=== PATIENT | female | born 2005 | race Hispanic/Latino ===

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

== ENCOUNTER 2025-05-22 07:09 | Emergency (ER) | payer SELFPAY ==
[~2025-05-22] VITALS: Ht 157.5 cm; Wt 93.5 kg
[~2025-05-22 07:09] MED LIST changes: +LACT10PA5 PO; +ONDA-243 PO; -ONDA4TAB10 PO
--- NOTE | 2025-05-22 07:22 | ERN ---
General Chief Complaint: Abdominal Pain Stated Complaint: ABDOMINAL PAIN Time Seen by MD: 07:10 Source: patient History of Present Illness Initial Comments Patient is a 19-year-old female coming in complaining of abdominal pain. Patient states the abdominal pain began a couple of days ago and has been progressively getting worse. Patient was seen at another hospital but states that she does not know what they told her. She also states that the pain is in the epigastric and bilateral upper flank regions. Allergies: Coded Allergies: No Allergy Information Available (Verified Allergy, Unknown, 05/08/21) No Known Drug Allergies (Unverified Allergy, Unknown, 05/12/22) Home Meds Active Scripts Lactulose (Lactulose) 10 Gm Packet, 10 GM PO DAILY, #30 PKT Prov:BRANDIE KINNEY 05/12/22 Cetirizine HCl (Cetirizine HCl) 10 Mg Tablet, 10 MG PO DAILY, #15 TAB Prov:[facility] 05/03/22 Benzonatate (Tessalon Perles) 100 Mg Cap, 100 MG PO TID, #15 CAP Prov:[facility] 05/03/22 Ibuprofen (Ibuprofen) 600 Mg Tablet, 600 MG PO Q6H PRN for PAIN, #15 TAB Prov:MINOO ALATORRE [facility] 05/03/22 Ondansetron (Ondansetron Odt) 4 Mg Tab.rapdis, 4 MG PO TID, #21 TAB Prov:BRANDIE KINNEY 04/28/22 Cephalexin Monohydrate (Keflex) 500 Mg Cap, 500 MG PO TID for 7 Days, #21 CAP Prov:BRANDIE KINNEY 04/28/22 Ondansetron (Ondansetron Odt) 4 Mg Tab.rapdis, 4 MG PO BID, #28 TAB Prov:BRANDIE KINNEY 05/08/21 Famotidine (Pepcid) 20 Mg Tablet, 20 MG PO BID, #60 TAB Prov:BRANDIE KINNEY 05/08/21 Dicyclomine HCl (Bentyl) 20 Mg Tab, 20 MG PO QID, #28 TAB Prov:BRANDIE KINNEY 05/08/21 Past Medical History Past Medical History: No Pertinent History Medical History Other: Gastritis, obesity Past Surgical History: None Family History Family History: Negative Social History Social History: Negative Female( History) : 0 ROS Dictation CONSTITUTIONAL: No chills, no fever, no weakness, no diaphoresis, no malaise. HEAD/FACE: No signs of trauma. EENT: No eye pain, no blurred vision, no tearing, no double vision, no ear pain, no ear discharge, no nose pain, no nasal congestion, no throat pain, no throat swelling, no mouth pain. RESPIRATORY: No cough, no orthopnea, no SOB, no stridor, no wheezing. CARDIOVASCULAR: No chest pain, no edema, no palpitations, no syncope. GASTROINTESTINAL/ABDOMINAL: abdominal pain, no constipation, no diarrhea, no nausea, no vomiting. GENITOURINARY: No abnormal discharge, no dysuria, no frequent urination, no hematuria. No complaints of pain in the genitals. MUSCULOSKELETAL: No back pain, no gout, no joint pain, no joint swelling, no muscle pain, no muscle stiffness, no neck pain. INTEGUMENTARY: No change in color, no change in hair/nails, no dryness, no lesion, no lumps, no rash. NEUROLOGICAL/PSYCH: No anxiety, not depressed, no emotional problem, no headache, no numbness, no pre-existing deficit, no history of seizures, no tremors, no weakness. HEMATOLOGIC/LYMPHATIC: Not anemic, no history of blood clots, no apparent bleeding, no bruising, glands not swollen. All Systems Negative, Except as Noted. Physical Exam Physical Exam Dictation VITAL SIGNS: Reviewed. GENERAL APPEARANCE: Alert, oriented x3, no acute distress, obese. HEAD AND FACE: Non-traumatic. EYES: PERRL, pink conjunctivas, eyelid no trauma, anterior chamber clear. EARS: Pinnas intact and no signs of trauma or erythema. Ear canals clear and no discharge. TMs no erythema. NOSE: No discharge, no bleeding. OROPHARYNX: Mouth normal, teeth no caries, tongue pink. Pharynx clear, no erythema. Tonsils no exudates, no abscesses noted. Mucous membrane moist. NECK: Supple, non-tender, no thyromegaly, no masses, no JVD, no bruits. BREAST: Deferred. CHEST: No tenderness, no crepitus, no paradoxical movement, no retractions. LUNGS: Clear, well-ventilated, symmetric, no rales, no wheezing, no rhonchi, no stridor, good breath sounds bilaterally. HEART: Regular rate, regular rhythm, no murmur, no gallops. VASCULAR: No peripheral edema. ABDOMEN: Soft, positive bowel sounds, nondistended, no guarding, nontender, no rebound, no masses no hepatomegaly, no splenomegaly, no Birch's sign, no hernias. RECTAL: Deferred. GENITAL: Deferred. NEUROLOGICAL: Normal speech, gross motor function intact, gross sensory function intact. MUSCULOSKELETAL: Neck nontender, full range of motion, back nontender, full range of motion. EXTREMITIES: Nontender, full range of motion. SKIN: Color pink, dry, no turgor, no rash, no lacerations, no abrasions, no contusions. LYMPHATICS: Deferred. Results Laboratory and Microbiology Lab and Micro Result Laboratory Tests Test 05/22/25 07:27 05/22/25 07:34 Urine Color YELLOW (YELLOW) Urine Appearance CLOUDY (CLEAR) H Urine pH 6.0 (5.0-8.0) Urine Specific [place] 1.039 (1.001-1.031) Urine Protein 50 mg/dL (NEGATIVE) H Urine Glucose (UA) NEGATIVE mg/dL (NEGATIVE) Urine Ketones 10 mg/dL (NEGATIVE) H Urine Occult Blood NEGATIVE (NEGATIVE) Urine Nitrate NEGATIVE (NEGATIVE) Urine Bilirubin 0.5 mg/dL (NEGATIVE) H Urine Urobilinogen 2.0 mg/dL (0.2-1.0) H Urine Leukocyte Esterase 25 Tre/uL (NEGATIVE) H Urine RBC 2-5 /HPF (0-1) H Urine WBC 2-5 /HPF (0-1) H Urine Squamous Epithelial Cells FEW /HPF (0-2) Urine Amorphous Crystals (Auto) RARE /LPF (None Seen) Urine Bacteria None /HPF (None Seen) Urine HCG, Qualitative NEGATIVE (NEGATIVE) Urine Opiates Screen NEGATIVE (NEGATIVE) Urine Barbiturates Screen NEGATIVE (NEGATIVE) Urine Phencyclidine Screen NEGATIVE (NEGATIVE) Urine Amphetamines Screen NEGATIVE (NEGATIVE) Urine Benzodiazepines Screen NEGATIVE (NEGATIVE) Urine Cocaine Screen NEGATIVE (NEGATIVE) Urine Marijuana (THC) Screen POSITIVE (NEGATIVE) H White Blood Count 9.2 K/uL (4.8-10.8) Red Blood Count 4.73 MIL/uL (4.00-5.50) Hemoglobin 12.1 g/dL (12.0-16.0) Hematocrit 37.4 % (36-48) Mean Corpuscular Volume 79.1 fL (80-100) L Mean Corpuscular Hemoglobin 25.6 pg (27.0-33.0) L Mean Corpuscular Hemoglobin Concent 32.4 g/dL (32.0-36.0) Red Cell Distribution Width 15.1 % (11.0-15.5) Platelet Count 395 K/uL (130-400) Mean Platelet Volume 9.1 fL (7.5-10.5) Immature Granulocyte % (Auto) 0.3 % (0-1) Neutrophils (%) (Auto) 70.8 % (40.0-77.0) Lymphocytes (%) (Auto) 18.4 % (21.0-51.0) L Monocytes (%) (Auto) 10.0 % (3.0-13.0) Eosinophils (%) (Auto) 0.1 % (0.0-8.0) Basophils (%) (Auto) 0.4 % (0.0-5.0) Neutrophils # (Auto) 6.5 K/uL (1.8-7.7) Lymphocytes # (Auto) 1.7 K/uL (1.0-4.8) Monocytes # (Auto) 0.9 K/uL (0.1-1.0) Eosinophils # (Auto) 0.01 K/uL (0.00-0.70) Basophils # (Auto) 0.04 K/uL (0.00-0.20) Absolute Immature Granulocyte (auto 0.03 K/uL (0-1) Nucleated Red Blood Cells 0.0 % (0.0-0.19) Sodium Level 130 mmol/L (136-145) L Potassium Level 2.8 mmol/L (3.5-5.1) *L Chloride Level 93 mmol/L (101-111) L Carbon Dioxide Level 27 mmol/L (21-32) Blood Urea Nitrogen 11 mg/dL (7-18) Creatinine 0.9 mg/dL (0.5-1.0) Glomerular Filtration Rate Calc 94 mL/min (>90) Random Glucose 93 mg/dL (70-105) Total Calcium 8.8 mg/dL (8.5-10.1) Total Bilirubin 0.6 mg/dL (0.2-1.0) Aspartate Amino Transf (AST/SGOT) 121 U/L (10-37) H Alanine Aminotransferase (ALT/SGPT) 70 U/L (12-78) Alkaline Phosphatase 94 U/L (50-136) Troponin I High Sensitivity 13 ng/L (4-50) Total Protein 8.4 g/dL (6.0-8.3) H Albumin 4.1 g/dL (3.5-5.0) Lipase 15 U/L (16-77) L Human Chorionic Gonadotropin, Quant 0 mIU/mL (0-5) EKG/XRAY/US/CT/MRI EKG Comment 05/22/2025 time 7:38 a.m. Ventricular rate 62 Sinus rhythm ID [id number] wave elevation or depression MDM MDM: Differential diagnosis: Cannabis abuse, hyperemesis cannabinoid , hypokalemia, dehydration Rationale: Tests considered and ordered secondary to shared decision making include: Previous outside records reviewed: Old ER visits. Risk of complication and/or morbidity or mortality of patient management: None Medications-Per medication reconciliation Need for hospitalization: Patient does not meet criteria for hospitalization. Patient is a 19-year-old female coming in complaining of nausea and vomiting. Patient states he was seen at another hospital but does not recall what they told her. Laboratory workup positive for cannabis potassium was replaced since it was low. Patient was hydrated with IV fluids given a GI cocktail states he feels better we will be discharged in stable condition. Patient was counseled on cannabis avoidance in order to help with the symptoms. Patient will be discharged in stable condition patient is tolerating oral intake. ED Course Orders Procedure Category Date Status Time Cbc With Differential LAB 05/22/25 Complete 07:13 Comprehensive LAB 05/22/25 Complete Metabolic Panel 07:13 Troponin I High LAB 05/22/25 Complete Sensitivity 07:13 Hcg,Quantitative LAB 05/22/25 Complete 07:13 ,Urine Test LAB 05/22/25 Complete 07:13 Urinalysis Profile LAB 05/22/25 Complete 07:13 12 Lead Ekg Tracing- EKG 05/22/25 Complete Technical 07:13 0.9%Nacl 1000ml (Ns PHA 05/22/25 Complete 1000ml) 07:30 Ondansetron 4mg Inj PHA 05/22/25 Complete (Zofran 4mg Inj) 07:30 Lidocaine Hcl 2% PHA 05/22/25 Complete Viscous (Lidocaine Hcl 07:30 Mag/Alum/Simeth 30ml PHA 05/22/25 Complete (Maalox Plus 30ml) 07:30 Pantoprazole 40mg Inj PHA 05/22/25 Complete (Protonix 40mg Inj 07:30 Lipase LAB 05/22/25 Complete 07:13 Drug Screen Urine LAB 05/22/25 Complete 07:14 Potassium Chloride PHA 05/22/25 In Process 20meq/100ml ([place] 09:00 Potassium Bicarb/Cit PHA 05/22/25 Complete Ac 25meq (K-Lyte Ta 09:00 Current Medications Medications (Trade) Dose Ordered Sig/Faith Route PRN Reason Start Time Stop Time Status Last Admin Dose Admin Al Hydroxide/Mg Hydroxide (MAALox PLUS 30ML) 30 ml ONCE ONCE PO 05/22/25 07:30 05/22/25 07:31 DC 05/22/25 07:42 Lidocaine HCl (Lidocaine HCl 2% Viscous) 10 ml ONCE ONCE PO 05/22/25 07:30 05/22/25 07:31 DC 05/22/25 07:43 Ondansetron HCl (zoFRAN 4MG INJ) 4 mg ONCE ONCE IVP 05/22/25 07:30 05/22/25 07:31 DC 05/22/25 07:42 Pantoprazole Sodium (PROTonix 40MG INJ) 40 mg ONCE ONCE IVP 05/22/25 07:30 05/22/25 07:31 DC 05/22/25 07:42 Potassium Bicarbonate (K-Lyte Tablet Eff 25 Meq Tablet.eff) 50 meq ONCE ONCE PO 05/22/25 09:00 05/22/25 09:01 DC 05/22/25 08:49 Potassium Chloride 100 ml @ 50 mls/hr ONCE ONCE IV 05/22/25 09:00 05/22/25 10:59 05/22/25 08:49 Sodium Chloride 1,000 ml @ 0 mls/hr ONCE ONCE IV 05/22/25 07:30 05/22/25 07:31 DC 05/22/25 07:43 Vital Signs Date Time Temp Pulse Resp B/P (MAP) Pulse Ox O2 Delivery O2 Flow Rate FiO2 05/22/25 08:25 79 18 109/48 98 Room Air* 0 21 05/22/25 07:14 97.5 88 20 130/107 100 Room Air* 0 21 05/22/25 07:11 97.5 88 20 130/107 100 DX & DISP Disposition: Discharge Departure Impression: Primary Impression: Dehydration Additional Impressions: Marijuana abuse, Hypokalemia Condition: Stable Additional Instructions: FOLLOW-UP WITH PRIMARY CARE PROVIDER IN 1 TO 2 DAYS. TAKE MEDICATIONS DIRECTED HERE IN THE EMERGENCY ROOM. OKAY TO CONTINUE HOME MEDICATIONS UNLESS OTHERWISE DISCUSSED DURING YOUR VISIT IN THE EMERGENCY ROOM TODAY. RETURN TO YOUR NEAREST EMERGENCY ROOM IF SYMPTOMS WORSEN OR IF THERE IS NO IMPROVEMENT. CALL 911 IF YOU NEED IMMEDIATE ASSISTANCE. TAKE TYLENOL [id number] NEEDED AND IF NO CONTRAINDICATIONS ARE PRESENT. INCREASE ORAL HYDRATION. A WOUND CULTURE OR URINE CULTURE WAS ORDERED HERE IN THE EMERGENCY ROOM DEPARTMENT PLEASE FOLLOW-UP WITH PRIMARY CARE PROVIDER AND ADVISE THEM TO GET REPORTS FROM OUR FACILITY. IF YOU HAD ANY LEW WRAP/SPLINTS THAT WERE APPLIED HERE, PLEASE DO NOT REMOVE THEM UNTIL YOU SEE YOUR PRIMARY CARE OR SPECIALTY. Referrals: Referrals: SELF,REFERRAL (PCP) MANGO SEGUNDO MD Time of Disposition: 09:19 IWONA ALLAN MD May 22, 2025 07:22
[2025-05-22 07:42] LABS: IMMATURE GRANULOCYTE ABSOLUTE 0.03 K/uL (0-1); NUCLEATED RED BLOOD CELLS 0.0 % (0.0-0.19); PLATELET COUNT (AUTO) 395 K/uL (130-400); RED BLOOD CELL COUNT(AUTO) 4.73 MIL/uL (4.00-5.50); RED CELL DISTRIBUTION WIDTH 15.1 % (11.0-15.5); WHITE BLOOD COUNT (AUTO) 9.2 K/uL (4.8-10.8)
[2025-05-22] MEDS: MAG/ALUM/SIMETH 30 ML UDCUP PO ONE (07:42)
[2025-05-22] MEDS: LIDOCAINE HCL 2% VISCOUS 15 ML UDCUP PO ONE (07:43)
[2025-05-22] MEDS: 0.9%NACL 1000ML 1,000 ML IV ONE (07:43)
--- NOTE | 2025-05-22 07:43 | EKG ---
[facility] Test Date: 2025-05-22 Test Time: 07:38:23 Pat Name: ELISA QUESADA Department: ED Room: Gender: F [employer] Firearms: [id number] : 2005 Requested By: IWONA ALLAN Order Number: [id number] Reading MD: Dell Jaquez Measurements Intervals [place] Rate: 62 P: -1 WA: 141 QRS: 66 QRSD: 101 T: 46 QT: 451 QTc: 457 Interpretive Statements Sinus rhythm No previous ECG available for comparison Electronically Signed On 05-24-2025 00:02:50 CDT by Dell Jaquez Please click the below link to view image of tracing.
[2025-05-22 08:00] LABS: APPEARANCE,URINE CLOUDY (CLEAR); GLUCOSE, URINE (UA) NEGATIVE (NEGATIVE); LEUKOCYTE ESTERASE ,URINE 25 Leu/uL (NEGATIVE); NITRATE,URINE NEGATIVE (NEGATIVE); OCCULT BLOOD,URINE NEGATIVE (NEGATIVE)
[2025-05-22 08:05] LABS: CREATININE 0.9 mg/dL (0.5-1.0); GLOMERULAR FILTR. RATE CALC 94.0 mL/min (>90); GLUCOSE,RANDOM 93.0 mg/dL (70-105); SODIUM SERUM 130.0 mmol/L (136-145); UREA NITROGEN, BLOOD 11.0 mg/dL (7-18)
[2025-05-22 08:06] LABS: ADD UA MICROSCOPIC YES
[2025-05-22 08:08] LABS: HCG,QUALITATIVE URINE NEGATIVE (NEGATIVE); SQUAMOUS EPITHELIAL CELL,UR FEW /HPF (0-2)
[2025-05-22 08:15] LABS: ASPARTATE AMINOTRANSFERASE 121.0 U/L (10-37); HCG,QUANTITATIVE 0.0 mIU/mL (0-5); TOTAL PROTEIN, SERUM 8.4 g/dL (6.0-8.3)
[2025-05-22 08:48] LABS: AMPHET/METH SCREEN,URINE NEGATIVE (NEGATIVE); BARBITURATE SCREEN, URINE NEGATIVE (NEGATIVE); CANNABINOID SCREEN,URINE POSITIVE (NEGATIVE); COCAINE SCREEN,URINE NEGATIVE (NEGATIVE)
--- NOTE | 2025-05-22 09:23 | NUR ---
PT HAS DISCHARGE ORDERS, AWAITING COMPLETION OF IV POTASSIUM
[2025-05-22 10:02] VITALS: BP 129/64; PULSE 81; RESP 18; TEMP 97.9; O2SAT 99
== END 2025-05-22 10:25 | disposition home or self-care (01) ==
LOC: EDH 07:09
DX: E86.0 Dehydration (principal); F12.10 Cannabis abuse, uncomplicated; E87.6 Hypokalemia; E66.9 Obesity, unspecified
CPT/HCPCS: 99284; 96365; 96375; 96366; 96361; 84484; 80053; 80305; 84702; 83690; 85025; 81025; 36415; 96368; 93005; 81001; J7030; J0696; J2405; J3480; J2470

== ENCOUNTER 2025-08-11 22:09 | Emergency (ER) | payer SELFPAY ==
[~2025-08-11] VITALS: Ht 160 cm; Wt 81.6 kg
[~2025-08-11 22:09] MED LIST changes: +IBUP-1492 PO; -IBUP-2070 PO
--- NOTE | 2025-08-11 23:08 | ERN ---
ED Note History of Present Illness Stated Complaint: NAUSEA, VOMITING RUQ AND RLQ Chief Complaint: Nausea,Vomiting,Diarrhea Time Seen by MD: 22:14 Dictation: 19-year-old female presents to ER via EMS complaints of vomiting, diarrhea, nausea and abdominal pain onset about1 week. Seen at [facility] ER yesterday was discharged with Zofran and liquid medication for abdominal pain. Denies fever. Patient states has history of gastritis. Allergies: Coded Allergies: No Allergy Information Available (Verified Allergy, Unknown, 05/08/21) No Known Drug Allergies (Unverified Allergy, Unknown, 05/12/22) Home Meds Active Scripts Lactulose (Lactulose) 10 Gm Packet, 10 GM PO DAILY, #30 PKT Prov:BRANDIE KINNEY 05/12/22 Cetirizine HCl (Cetirizine HCl) 10 Mg Tablet, 10 MG PO DAILY, #15 TAB Prov:[facility] 05/03/22 Benzonatate (Tessalon Perles) 100 Mg Cap, 100 MG PO TID, #15 CAP Prov:[facility] 05/03/22 Ibuprofen (Ibuprofen) 600 Mg Tablet, 600 MG PO Q6H PRN for PAIN, #15 TAB Prov:[facility] 05/03/22 Ondansetron (Ondansetron Odt) 4 Mg Tab.rapdis, 4 MG PO TID, #21 TAB Prov:BRANDIE KINNEY 04/28/22 Cephalexin Monohydrate (Keflex) 500 Mg Cap, 500 MG PO TID for 7 Days, #21 CAP Prov:BRANDIE KINNEY 04/28/22 Ondansetron (Ondansetron Odt) 4 Mg Tab.rapdis, 4 MG PO BID, #28 TAB Prov:BRANDIE KINNEY 05/08/21 Famotidine (Pepcid) 20 Mg Tablet, 20 MG PO BID, #60 TAB Prov:BRANDIE KINNEY 05/08/21 Dicyclomine HCl (Bentyl) 20 Mg Tab, 20 MG PO QID, #28 TAB Prov:BRANDIE KINNEY 05/08/21 Past Medical History Past Medical History: No Pertinent History Additional Past Medical Hx: Gastritis, obesity Surgical History: None Family History: Negative Social History: Negative : 0 Review of System Dictation CONSTITUTIONAL: NEGATIVE FOR FEVER,CHILLS, AND WEIGHT LOSS EYES: NEGATIVE FOR INJURY, PAIN,REDNESS, AND DISCHARGE ENT: NEGATIVE FOR INJURY,PAIN OR SWELLING CARDIOVASCULAR: NEGATIVE FOR CHEST PAIN, PALPITATIONS, AND EDEMA RESPIRATORY: NEGATIVE FOR SHORTNESS OF BREATH, COUGH, WHEEZING, AND PLEURITIC CHEST PAIN ABDOMEN/GI: Positive for abdominal pain, nausea, vomiting, diarrhea BACK: NEGATIVE FOR PAIN OR INJURY : NEGATIVE FOR INJURY, BLEEDING AND DISCHARGE MS/EXTREMITY: NEGATIVE FOR INJURY AND DEFORMITY SKIN: NEGATIVE FOR RASH, AND DISCOLORATION NEURO: NEGATIVE FOR HEADACHE, WEAKNESS, NUMBNESS, TINGLING, AND SEIZURE PSYCH: NEGATIVE FOR SUICIDE IDEATION, HOMICIDAL IDEATION, AND HALLUCINATIONS ALLERGY/IMMUNOLOGY: NEGATIVE FOR HIVES, RASH, AND ALLERGIES ALL SYSTEMS NEGATIVE, EXCEPT NOTED ABOVE. 13 POINT REVIEW OF SYSTEMS ASSESSED AND ALL NEGATIVE EXCEPT FOR ABOVE. Initial Vital Sign VS Vital Signs Date Time Temp Pulse Resp B/P (MAP) Pulse Ox O2 Delivery O2 Flow Rate FiO2 08/11/25 22:13 98.1 99 20 132/88 98 Room Air 0 08/12/25 01:30 21 Physical Exam Dictation General: awake, alert, NAD Head/Face: Normocephalic, atraumatic Eyes: PERRL, EOMI, vision at baseline ENT: oral cavity clear, TMs clear, no signs of infection Neck: Trachea midline, supple, no nuchal rigidity Cardiovascular: RRR, normal no JVD Respiratory: CTAB, no respiratory distress, No rales or wheezes Abdomen: Soft, non-tender, non-distended, normal bowel sounds, no guarding or rebound. Skin: Warm, dry, normal turgor, no rash MS/Extremity: Pulses equal, no cyanosis, neurovascular intact, FROM Neuro: COAx4, GCS 15, strength 5/5, CN 2-12 intact, normal cerebellar exam, normal gait, Psych: Normal behavior, mood, and affect normal Results (Laboratory/Radiology) Laboratory/Radiology Laboratory Tests Test 08/11/25 23:40 08/11/25 23:47 Urine Color YELLOW (YELLOW) Urine Appearance CLOUDY (CLEAR) H Urine pH 6.0 (5.0-8.0) Urine Specific [place] 1.034 (1.001-1.031) Urine Protein 70 mg/dL (NEGATIVE) H Urine Glucose (UA) NEGATIVE mg/dL (NEGATIVE) Urine Ketones 5 mg/dL (NEGATIVE) H Urine Occult Blood NEGATIVE (NEGATIVE) Urine Nitrate NEGATIVE (NEGATIVE) Urine Bilirubin NEGATIVE mg/dL (NEGATIVE) Urine Urobilinogen 0.2 mg/dL (0.2-1.0) Urine Leukocyte Esterase NEGATIVE Tre/uL Urine RBC 6-10 /HPF (0-1) H Urine WBC 2-5 /HPF (0-1) H Urine Squamous Epithelial Cells FEW /HPF (0-2) Urine Amorphous Crystals (Auto) RARE /LPF (None Seen) Urine Bacteria None /HPF (None Seen) Urine Hyaline Casts 26-50 /LPF (0-1 /LPF) H Urine HCG, Qualitative NEGATIVE (NEGATIVE) White Blood Count 11.9 K/uL (4.8-10.8) H Red Blood Count 5.03 MIL/uL (4.00-5.50) Hemoglobin 13.1 g/dL (12.0-16.0) Hematocrit 40.9 % (36-48) Mean Corpuscular Volume 81.3 fL (80-100) Mean Corpuscular Hemoglobin 26.0 pg (27.0-33.0) L Mean Corpuscular Hemoglobin Concent 32.0 g/dL (32.0-36.0) Red Cell Distribution Width 14.7 % (11.0-15.5) Platelet Count 365 K/uL (130-400) Mean Platelet Volume 9.2 fL (7.5-10.5) Immature Granulocyte % (Auto) 0.3 % (0-1) Neutrophils (%) (Auto) 71.6 % (40.0-77.0) Lymphocytes (%) (Auto) 17.3 % (21.0-51.0) L Monocytes (%) (Auto) 10.5 % (3.0-13.0) Eosinophils (%) (Auto) 0.0 % (0.0-8.0) Basophils (%) (Auto) 0.3 % (0.0-5.0) Neutrophils # (Auto) 8.5 K/uL (1.8-7.7) H Lymphocytes # (Auto) 2.1 K/uL (1.0-4.8) Monocytes # (Auto) 1.3 K/uL (0.1-1.0) H Eosinophils # (Auto) 0.00 K/uL (0.00-0.70) Basophils # (Auto) 0.04 K/uL (0.00-0.20) Absolute Immature Granulocyte (auto 0.04 K/uL (0-1) Nucleated Red Blood Cells 0.0 % (0.0-0.19) Sodium Level 135 mmol/L (136-145) L Potassium Level 3.4 mmol/L (3.5-5.1) L Chloride Level 95 mmol/L (101-111) L Carbon Dioxide Level 26 mmol/L (21-32) Blood Urea Nitrogen 23 mg/dL (7-18) H Creatinine 0.8 mg/dL (0.5-1.0) Glomerular Filtration Rate Calc 109 mL/min (>90) Random Glucose 116 mg/dL (70-105) H Total Calcium 9.3 mg/dL (8.5-10.1) Amylase Level 42 U/L (25-115) Lipase 15 U/L (16-77) L ED Course ED Course Orders Procedure Category Date Status Time Cbc With Differential LAB 08/11/25 Complete 23:04 Amylase LAB 08/11/25 Complete 23:04 ,Urine Test LAB 08/11/25 Complete 23:04 0.9%Nacl 1000ml (Ns PHA 08/11/25 Complete 1000ml) 23:30 Lipase LAB 08/11/25 Complete 23:04 Basic Metabolic Panel LAB 08/11/25 Complete 23:04 Us Abdominal Ruq\Ltd US 08/11/25 Taken 23:39 Diphenhydramine Hcl PHA 08/12/25 Complete (Benadryl Inj) 00:00 Urinalysis LAB 08/11/25 Complete W/Microscopic 23:40 Ketorolac PHA 08/12/25 Complete Tromethamine 30mg/Ml 00:30 Ondansetron 4mg Inj PHA 08/12/25 Complete (Zofran 4mg Inj) 01:00 Pantoprazole 40mg Inj PHA 08/12/25 Complete (Protonix 40mg Inj 01:00 Current Medications Medications (Trade) Dose Ordered Sig/Faith Route PRN Reason Start Time Stop Time Status Last Admin Dose Admin Diphenhydramine HCl (BENAdryl INJ) 25 mg ONCE ONCE IV 08/12/25 00:00 08/12/25 00:01 DC 10/16/25 00:45 Ketorolac Tromethamine (toRADol) 30 mg ONCE ONCE IVP 08/12/25 00:30 08/12/25 00:31 DC 08/12/25 00:45 Ondansetron HCl (zoFRAN 4MG INJ) 4 mg ONCE ONCE IVP 08/12/25 01:00 08/12/25 01:01 DC 08/12/25 01:08 Pantoprazole Sodium (PROTonix 40MG INJ) 40 mg STAT ONCE IVP 08/12/25 01:00 08/12/25 01:01 DC 08/12/25 01:08 Sodium Chloride 1,000 ml @ 0 mls/hr ONCE ONCE IV 08/11/25 23:30 08/11/25 23:31 DC 08/11/25 23:52 Vital Signs Date Time Temp Pulse Resp B/P (MAP) Pulse Ox O2 Delivery O2 Flow Rate FiO2 08/12/25 01:30 98.4 86 18 121/74 97 Room Air* 0 21 08/11/25 22:13 98.1 99 20 132/88 98 Room Air 0 Medical Decision Making MDM MDM: Differential diagnosis: Gastritis, gastroenteritis, epigastric pain, unspecified abdominal pain, Rationale: Tests considered and ordered secondary to shared decision making include: labs, ECG and radiology Previous outside records reviewed: Old ER visits. Risk of complication and/or morbidity or mortality of patient management: None Medications-Per medication reconciliation Need for hospitalization: Patient does NOT meet criteria for hospitalization. Need for emergency major/minor surgery: No There are no social concerns with this patient. Prescription drug management Prescriptions will include symptomatic care Patient's prior external medical records from other ER visits were reviewed by me as indicated. Prior testing and results from previous visits were reviewed. Prior tests were taken into account with medical decision making and resource utilization, independent historian/historians were used to obtain complete medical history. I independently interpreted the test that were performed, results were reviewed by me and considered findings on radiology if ordered. DX & DISP Disposition: Discharge Departure Impression: Primary Impression: Gastritis Condition: Stable Assign Patient to: Your symptoms are more consistent with gastritis. Labs normal today. FOLLOW-UP WITH YOUR PCP IN 24-72 HOURS AND IN THE EVENT IF SYMPTOMS WORSEN OR AN EMERGENCY OVERNIGHT REPORT TO THE ED IMMEDIATELY Scripts Pantoprazole Sodium (Protonix) 40 Mg Ectab 1 TAB PO DAILY for 30 Days, #30 TAB 0 Refills Prov: TOSHIA VELIZ 08/12/25 Ondansetron (Ondansetron Odt) 4 Mg Tab.rapdis 1 TAB PO Q6HPRN PRN for nausea/vomiting for 4 Days, #16 TAB 0 Refills Prov: TOSHIA VELIZ 08/12/25 Referrals: SELF,REFERRAL (PCP) TOSHIA VELIZ Aug 11, 2025 23:08
[2025-08-11] MEDS: 0.9%NACL 1000ML 1,000 ML IV ONE (23:52)
[2025-08-11 23:55] LABS: IMMATURE GRANULOCYTE ABSOLUTE 0.04 K/uL (0-1); NUCLEATED RED BLOOD CELLS 0.0 % (0.0-0.19); PLATELET COUNT (AUTO) 365 K/uL (130-400); RED BLOOD CELL COUNT(AUTO) 5.03 MIL/uL (4.00-5.50); RED CELL DISTRIBUTION WIDTH 14.7 % (11.0-15.5); WHITE BLOOD COUNT (AUTO) 11.9 K/uL (4.8-10.8)
[2025-08-12 00:03] LABS: CREATININE 0.8 mg/dL (0.5-1.0); GLOMERULAR FILTR. RATE CALC 109.0 mL/min (>90); GLUCOSE,RANDOM 116.0 mg/dL (70-105); SODIUM SERUM 135.0 mmol/L (136-145); UREA NITROGEN, BLOOD 23.0 mg/dL (7-18)
[2025-08-12 00:08] LABS: HCG,QUALITATIVE URINE NEGATIVE (NEGATIVE)
--- NOTE | 2025-08-12 00:20 | NUR ---
PT TRANSFERRED FROM [facility] TO [facility]
[2025-08-12 00:21] LABS: APPEARANCE,URINE CLOUDY (CLEAR); GLUCOSE, URINE (UA) NEGATIVE (NEGATIVE); HYALINE CASTS, URINE 26-50 /LPF (0-1 /LPF); LEUKOCYTE ESTERASE ,URINE NEGATIVE Leu/uL (NEGATIVE); NITRATE,URINE NEGATIVE (NEGATIVE); OCCULT BLOOD,URINE NEGATIVE (NEGATIVE); SQUAMOUS EPITHELIAL CELL,UR FEW /HPF (0-2)
[2025-08-12 01:30] VITALS: BP 121/74; PULSE 86; RESP 18; TEMP 98.5; O2SAT 97
[2025-08-12] MEDS ORDERED: PANT40TA55 PO (01:43)
[2025-08-12] MEDS ORDERED: ONDA-243 PO (01:43)
--- NOTE | 2025-08-12 01:46 | HMCIMG ---
EXAM: Ultrasound Abdomen, Right Upper Quadrant. CLINICAL HISTORY: Abdominal pain. TECHNIQUE: Right upper quadrant sonography performed with image documentation. COMPARISON: None provided. FINDINGS: Liver: Normal in size. Grade 1 fatty infiltration. No focal hepatic lesion. Gallbladder: Normal in appearance. Gallbladder wall measures approximately 3 mm (within normal limits). No gallstones. No pericholecystic fluid. Common Bile Duct: Not dilated. Proximal portion visualized; distal segment partially obscured. Pancreas: Partially visualized. Visualized segments are unremarkable; the distal pancreas is obscured by bowel gas. Right Kidney: Measures approximately 9.7 ??? 4.6 ??? 4.7 cm. Normal cortical echogenicity and contour. No renal mass, calculus, or hydronephrosis. Additional: The exam was limited due to patient motion and vomiting at the time of imaging, with overlying bowel gas noted in the right lower quadrant, affecting visualization. IMPRESSION: No evidence of gallstones or biliary obstruction. Grade 1 fatty infiltration of the liver. /[place]
== END 2025-08-12 02:04 | disposition home or self-care (01) ==
LOC: EDH 22:09
DX: K29.70 Gastritis, unspecified, without bleeding (principal); Z79.899 Other long term (current) drug therapy; Z79.2 Long term (current) use of antibiotics
CPT/HCPCS: 99285; 76705; 96361; 82150; 80048; 83690; 85025; 81001; 81025; 36415; 96374; 96375; J7030; J1885; J1200; J2405; J2470